=== PATIENT | male | born 1955 | race Caucasian/White ===

== ENCOUNTER 2021-05-20 14:57 | Emergency (ER) | payer BC, MEDICARE, SELFPAY ==
--- NOTE | ~2021-05-20 | CT_ITS ---
EXAMINATION: CT diagnostic chest wo con DATE: 05/20/2021 17:00 INDICATION: lower lobe pneumonia? SOB w/ weakness and cough COVID + x3days TECHNIQUE: Computed tomography (CT) of the chest was performed without intravenous contrast. Addition al 3D reconstructions utilizing coronal maximum intensity projection (MIP) were performed. Automated exposure control and iterative reconstruction technique were employed. The dose-length product was 30 5.14 mGy-cm. COMPARISON: None FINDINGS: Patchy groundglass opacities throughout both lungs consistent with COVID pneumonia. Most prominent in the bilateral lower lobes where they were evident on the prior radiographs with more subtle patchy g roundglass opacities occult on plain radiographs in the right middle, bilateral upper lobes and lingu la. No pleural effusion. Heart size is normal. Mild atherosclerotic coronary artery calcification. No pericardial effusion. Small sliding-type hiatal hernia. Thoracic aorta is normal in caliber. No path ologically enlarged thoracic lymphadenopathy. Small calcified gallstones in the dependent aspect of t he normal-appearing gallbladder. Partially visualized prosthetic disc at C4-C5. Mild anterior wedging at T11. Moderate to severe disc height loss with degenerative endplate changes anteriorly at T11-T12 . IMPRESSION: 1. Bilateral mild patchy groundglass opacities with lower lobe predominance consistent with COVID pne umonia. 2. Cholelithiasis. 3. Small sliding-type hiatal hernia. Reviewed, dictated and finalized at location A. SOMNOGRAPHIC TECHNICIAN IMPRESSION: 1. Bilateral mild patchy groundglass opacities with lower lobe predominance con sistent with COVID pneumonia. 2. Cholelithiasis. 3. Small sliding-type hiatal hernia.
--- NOTE | ~2021-05-20 | XR_ITS ---
EXAMINATION: XR chest 1V portable DATE: 05/20/2021 16:18 INDICATION: COVID positive presenting with mild shortness of breath and weakness TECHNIQUE: frontal view of the chest was obtained. COMPARISON: None FINDINGS: Mild opacities in the bilateral lower lung zones. No pleural effusion or pneumothorax. The cardiomedi astinal silhouette is normal. Prosthetic disc in the lower cervical spine likely at C5-C6. IMPRESSION: 1. Mild opacities at the bilateral lower lung zones which could represent atelectasis and/or pneumoni a. Reviewed, dictated and finalized at location A. LOGY SOCIAL WORKER IMPRESSION: 1. Mild opacities at the bilateral lower lung zones which could represent atele ctasis and/or pneumonia.
[2021-05-20 15:05] VITALS: BP 115/73; PULSE 88; RESP 20; TEMP 37.5; O2SAT 95
[2021-05-20] MEDS: PANTOPRAZOLE SODIUM IV 40 MG VIAL IV PUSH (15:55)
[2021-05-20] MEDS: SODIUM CHLORIDE 0.9% IV 1,000 ML 999 ML IV CONT ×2 (15:55→16:35)
[2021-05-20] MEDS: ONDANSETRON INJ 4 MG/2 ML VIAL IV PUSH ×2 (15:55→16:35)
[2021-05-20 15:57] VITALS: BP 120/76; PULSE 85; RESP 20; O2SAT 98
[2021-05-20 16:03] LABS: Basophils Absolute Auto 0.01 K/mm3 (0.00-0.10); Basophils Percent Auto 0.2 % (0.0-1.0); Hematocrit 42.4 % (40.0-54.0); Hemoglobin 14.7 g/dL (14.0-18.0); Immature Granulocyte Absolute 0.02 K/mm3 (0.00-0.00); Immature Granulocyte Percent A 0.3 % (0.0-0.0); Lymphocytes Absolute Auto 0.93 K/mm3 (1.10-4.50); Lymphocytes Percent Auto 14.2 % (18.0-42.0); Mean Corpuscular HGB Conc 34.7 g/dL (32.0-36.0); Mean Corpuscular Hemoglobin 28.8 pg (27.0-31.0); Mean Platelet Volume 10.7 fl (8.7-11.0); Monocytes Absolute Auto 0.38 K/mm3 (0.10-0.90); Monocytes Percent Auto 5.8 % (2.0-11.0); Neutrophils Absolute Auto 5.2 K/mm3 (1.7-7.2); Neutrophils Percent Auto 79.5 % (50.0-70.0); Platelet Count Result 176 K/mm3 (150-420); Red Blood Count 5.11 M/mm3 (4.70-6.10); Red Cell Distribution Width 11.9 % (11.6-14.4); White Blood Count 6.5 K/mm3 (4.8-10.8)
[2021-05-20 16:19] LABS: Alanine Aminotransferase 46 U/L (16-63); Albumin Level 3.5 g/dL (3.4-5.0); Alkaline Phosphatase 56 U/L (46-116); Anion Gap 13 mmol/L (8-16); Aspartate Amino Transferase 52 U/L (15-37); Bilirubin,Total 0.5 mg/dL (0.00-1.00); Blood Urea Nitrogen 29 mg/dL (7-18); Calcium 8.9 mg/dL (8.5-10.1); Carbon Dioxide 24 mmol/L (21-32); Chloride 92 mmol/L (98-108); Estimated CRCL calculation 49 ml/min; Estimated Glomerular Filt Rate 50; Glucose 285 mg/dL (70-99); Lipase 215 U/L (73-393); Osmolality Calculated 283 mOsm/kg (285-295); Potassium 4.8 mmol/L (3.5-5.1); Sodium 129 mmol/L (136-145); Total Protein 7.6 g/dL (6.4-8.2)
[2021-05-20 17:25] LABS: Add Urine Microscopic? YES; Appearance Urine Clear (Clear); Bilirubin Urine Negative (Negative); Blood Urine 2+ (Negative); Color Urine Yellow (Yellow); Glucose Urine UA 3+ (Negative); Ketones Urine 1+ (Negative); Leukocyte Esterase Ur Negative LEU/UL (Negative); Nitrate Urine Negative (Negative); Protein Urine 2+ (Negative); Specific Grav Ur >= 1.030 (1.010-1.020); Urobilinogen Urine 0.2 mg/dL (0.2-1.0)
--- NOTE | 2021-05-20 17:32 | ED.NAVMDI ---
HPI - Nausea/Vomiting/Diarrhea General Chief complaint: Nausea/Vomiting/Diarrhea Stated complaint: COVID+, blacked out,vomiting Time Seen by Provider: 05/20/21 14:59 Source: patient and RN notes reviewed Mode of arrival: ambulatory Limitations: no limitations History of Present Illness MD elicited complaint: nausea and vomiting Onset (ago): day(s) (1) Description of vomiting: watery Description of diarrhea: watery Associated nausea: Yes Associated abdominal pain: Yes Location of pain: diffuse Pain consistency: constant Severity: mild Pain scale (0-10): 3 Quality: cramping, aching and dull Exacerbating factors: none Relieving factors: none Associated symptoms: cough and nausea/vomiting Related Data Home Medications Medication Instructions Recorded Confirmed blood-glucose meter #1 each 04/25/19 05/22/21 Allergies Allergy/AdvReac Type Severity Reaction Status Date / Time nateglinide Allergy Severe Swelling Verified 05/22/21 13:48 of Lip/Tongue/Throat latex Allergy Unknown Verified 05/22/21 13:48 saxagliptin Allergy Unknown Verified 05/22/21 13:48 bag machine adjuster Allergy Severe skin Uncoded 05/22/21 13:48 breakdown cologne Allergy Severe hives Uncoded 05/22/21 13:48 wool clothing Allergy Severe hives Uncoded 05/22/21 13:48 Review of Systems Review of Systems: All systems reviewed & are unremarkable except as noted in HPI and below PMFSH Past Medical History Medical History Acquired hyperlipoproteinemia ADHD Anxiety Arthritis Asthma Back pain Bicipital tendinitis of left shoulder Body mass index (bmi) 31.0-31.9, adult Controlled type 2 diabetes mellitus with hyperglycemia Depression Dietary counseling and surveillance Headache, migraine Hearing loss Obesity Pure hypercholesterolemia, unspecified SOB (shortness of breath) Type 2 diabetes mellitus with hyperglycemia Vision loss Surgical History Surgical History H/O knee surgery H/O Spinal surgery History of ear surgery Family History Family History Other Carcinoma of colon Depression Diabetes mellitus Family history of arthritis Family history of chronic obstructive pulmonary disease Family history of congestive heart failure Family history of heart disease in male family member before age 55 Family history of lung disease Family history of mental disorder Family history of obesity Family history of thyroid disease Social History Social History Smoking status: Never smoker Alcohol intake: current Exam Const: General: no acute distress and alert Nutritional Appearance: well nourished Orientation/consciousness: patient oriented x3 HENMT: Head: normal to inspection Ears: external ears normal and TM's normal bilaterally General nose exam: Normal external nose present and Normal nares present Face and sinus: normal facial exam Mouth: Yes lip normal and Yes moist mucous membranes Teeth and gingiva: dentition normal Eyes: Cornea: corneas normal Pupils: Equal, round and reactive pupils present EOM: EOMs intact bilaterally Neck: Neck: normal visual inspection and no lymphadenopathy Chest: Chest palpation & inspection: normal inspection of the chest Resp: Effort & Inspection: normal respiratory effort Auscultation: clear to auscultation bilaterally Cardio: Rate: regular rate Rhythm: regular rhythm GI: GI Palp: Yes Soft to palpation and No Tenderness to palpation present (GI) Auscultation: normal bowel sounds : General: Yes bladder normal to palpation Male General Exam: Yes normal external exam Testes: Testes normal Back/Spine/Pelvis: Back: no CVA tenderness Skin: General skin exam: normal color Neuro: General: patient oriented x3, moves all extremities, no focal motor deficits an
[2021-05-20 17:34] LABS: RBC Urine 0-2 /hpf (0-2)
[2021-05-20 17:35] LABS: Bacteria Urine Trace /hpf; Squamous Epithelial Cell Urine Rare /hpf (Few); WBC Urine 0-3 /hpf (0-3)
[2021-05-20 17:43] LABS: Lactic Acid Reflex 1.3 mmol/L (0.4-2.0)
[2021-05-20 17:49] VITALS: BP 106/75; PULSE 79; RESP 20; TEMP 37.4; O2SAT 96
== END 2021-05-20 18:00 | disposition home or self-care (01) ==
PROVIDERS: Emergency Provider Emergency Medicine
DX: U07.1 COVID-19 (principal); J12.82 Pneumonia due to coronavirus disease 2019; K29.70 Gastritis, unspecified, without bleeding
CPT/HCPCS: 36415; 71045; 71250; 80053; 81001; 83605; 83690; 85025; 96361; 96365; 96375; 96376; 99283; 99284; C9113; J0696; J2405; J7030

== ENCOUNTER 2021-05-22 07:56 | Outpatient (RCR) | payer BC, MEDICARE, SELFPAY ==
[2021-05-22 13:47] VITALS: BP 113/62; PULSE 77; TEMP 35.9; O2SAT 95
[2021-05-22] MEDS: ACETAMINOPHEN 325 MG TABLET 650 MG PO (13:49)
[2021-05-22] MEDS: FAMOTIDINE 20 MG TABLET PO (13:50)
[2021-05-22] MEDS: diphenhydrAMINE HCl CAP 25 MG CAPSULE PO (13:50)
[2021-05-22 15:28] VITALS: BP 104/53
== END 2021-05-22 17:02 ==
LOC: AMCINF 07:56
PROVIDERS: PCP Nurse Practitioner Adult Health; Visit Provider Internal Medicine Hematology & Oncology
DX: U07.1 COVID-19 (principal); E11.9 Type 2 diabetes mellitus without complications
CPT/HCPCS: A9270; M0245; Q0245

== ENCOUNTER 2021-09-07 07:56 | Emergency (ER) | payer BC, MEDICARE, SELFPAY ==
--- NOTE | ~2021-09-07 | CT_ITS ---
EXAMINATION: CT lumbar spine wo con DATE: 09/07/2021 09:07 INDICATION: Low back pain. TECHNIQUE: Computed tomography (CT) of the lumbar spine was performed without intravenous contrast. A utomated exposure control and iterative reconstruction technique were employed. The dose-length produ ct was 972.66 mGy-cm. COMPARISON: None FINDINGS: There are gallstones in the gallbladder, which is normal in size. There is 3 mm anterolisth esis of L4 on L5. Vertebral body heights are normal. There is severely decreased disc height at T11-T 12 with endplate remodeling. The following disc levels are specifically discussed: L1-L2: The disc does not extend beyond the endplate margin. There is no facet joint osteoarthritis. T here is no neural foraminal stenosis. There is no central canal stenosis. L2-L3: The disc does not extend beyond the endplate margin. There is mild bilateral facet joint osteo arthritis. There is no neural foraminal stenosis. There is no central canal stenosis. L3-L4: The disc is mildly bulging. There is no facet joint osteoarthritis. There is mild bilateral ne ural foraminal stenosis. There is mild central canal stenosis. L4-L5: The disc is bulging. There is severe bilateral facet joint osteoarthritis. There is mild bilat eral neural foraminal stenosis. There is mild central canal stenosis. L5-S1: The disc is bulging. There is severe bilateral facet joint osteoarthritis. There is mild bilat eral neural foraminal stenosis. There is mild central canal stenosis. IMPRESSION: 1. Mild lumbar spondylosis. Reviewed, dictated and finalized at location A. IMPRESSION: 1. Mild lumbar spondylosis.
--- NOTE | ~2021-09-07 | CT_ITS ---
EXAMINATION: CT hip LT wo con DATE: 09/07/2021 09:06 INDICATION: Left hip pain. TECHNIQUE: Computed tomography (CT) of the left hip was performed without intravenous contrast. Autom ated exposure control and iterative reconstruction technique were employed. The dose-length product w as 472.51 mGy-cm. COMPARISON: Left hip radiograph 10/29/2016 FINDINGS: Bone alignment is normal. No fracture. There is moderate left hip osteoarthritis. There is a left hip effusion. IMPRESSION: 1. Moderate left hip osteoarthritis. 2. Left hip joint effusion. Reviewed, dictated and finalized at location A.
[2021-09-07 08:05] VITALS: BP 156/82; PULSE 81; RESP 16; TEMP 36.2; O2SAT 100
--- NOTE | 2021-09-07 08:29 | ED.GENADULT ---
HPI - General Adult General Chief complaint: Back Pain/Injury Stated complaint: ambulance Source: patient and EMS Mode of arrival: EMS Limitations: no limitations History of Present Illness HPI narrative: Austin is a 66M with a PMH of HLD, gastritis, anxiety, asthma, OA and severe DJD that was brought to the ED via EMS for back pain. He has chronic back pain that has been getting worse over the last day. The pain was so bad he had trouble moving his left leg. There were no trauma or falls. There has been no loss of bowel or bladder control or trouble emptying it. He has been able to move all extremities it has just been very painful. Related Data Home Medications Medication Instructions Recorded Confirmed blood-glucose meter #1 each 04/25/19 07/07/21 Allergies Allergy/AdvReac Type Severity Reaction Status Date / Time nateglinide Allergy Severe Swelling Verified 09/07/21 08:29 of Lip/Tongue/Throat latex Allergy Intermediate rash Verified 09/07/21 08:29 saxagliptin Allergy Unknown Rash Verified 09/07/21 08:29 museum exhibit technician Allergy Severe skin Uncoded 09/07/21 08:29 breakdown cologne Allergy Severe hives Uncoded 09/07/21 08:29 wool clothing Allergy Severe hives Uncoded 09/07/21 08:29 Review of Systems Constitutional: Constitutional: Reports no additional constitutional complaints Eyes: Eyes: Reports no additional eye complaints ENT: Reports system reviewed and no additional complaints, except as documented Cardiovascular: Cardiovascular: Reports no additional cardiovascular complaints Respiratory: Respiratory: Reports no additional respiratory complaints Gastrointestinal: Gastrointestinal: Reports no additional gastrointestinal complaints Genitourinary: Genitourinary: Reports no additional male genitourinary complaints Musculoskeletal: Musculoskeletal: Reports as per HPI Integumentary/Breasts: Skin/Breast: Reports system reviewed and no additional complaints, except as docu Neurologic: Reports system reviewed and no additional complaints, except as documented Psychiatric: Psychiatric: Reports no additional psychiatric complaints Endocrine: Endocrine: Reports no additional endocrine complaints Hematologic/Lymphatic: Hematologic/Lymphatic: Reports no additional hematologic/lymphatic complaints Allergic/Immunologic: Allergic/Immunologic: Reports no additional allergic/immunologic complaints [facility] Past Medical History Medical History Acquired hyperlipoproteinemia ADHD Anxiety Arthritis Asthma Back pain Bicipital tendinitis of left shoulder Body mass index (bmi) 31.0-31.9, adult Controlled type 2 diabetes mellitus with hyperglycemia Depression Dietary counseling and surveillance Headache, migraine Hearing loss Obesity Pure hypercholesterolemia, unspecified SOB (shortness of breath) Type 2 diabetes mellitus with hyperglycemia Vision loss Surgical History Surgical History H/O knee surgery H/O Spinal surgery History of ear surgery Family History Family History Other Carcinoma of colon Depression Diabetes mellitus Family history of arthritis Family history of chronic obstructive pulmonary disease Family history of congestive heart failure Family history of heart disease in male family member before age 55 Family history of lung disease Family history of mental disorder Family history of obesity Family history of thyroid disease Social History Social History Smoking status: Never smoker Alcohol intake: current Exam Const: General: no acute distress and alert Orientation/consciousness: patient oriented x3 HENMT: Head: normal to inspection Eyes: Conjunctivae: conjunctivae normal Pupils: Equal, round and reactive pupils present Neck: Neck: no
[2021-09-07 08:32] LABS: Basophils Absolute Auto 0.03 K/mm3 (0.00-0.10); Basophils Percent Auto 0.4 % (0.0-1.0); Eosinophils Absolute Auto 0.02 K/mm3 (0.02-0.50); Eosinophils Percent Auto 0.2 % (1.0-6.0); Hematocrit 37.1 % (40.0-54.0); Hemoglobin 12.8 g/dL (14.0-18.0); Immature Granulocyte Absolute 0.02 K/mm3 (0.00-0.00); Immature Granulocyte Percent A 0.2 % (0.0-0.0); Lymphocytes Absolute Auto 1.92 K/mm3 (1.10-4.50); Lymphocytes Percent Auto 23.2 % (18.0-42.0); Mean Corpuscular HGB Conc 34.5 g/dL (32.0-36.0); Mean Corpuscular Hemoglobin 28.4 pg (27.0-31.0); Mean Corpuscular Volume 82.3 fL (78.0-102.0); Mean Platelet Volume 10.1 fl (8.7-11.0); Monocytes Absolute Auto 0.64 K/mm3 (0.10-0.90); Monocytes Percent Auto 7.7 % (2.0-11.0); Neutrophils Absolute Auto 5.6 K/mm3 (1.7-7.2); Neutrophils Percent Auto 68.3 % (50.0-70.0); Platelet Count Result 286 K/mm3 (150-420); Red Blood Count 4.51 M/mm3 (4.70-6.10); Red Cell Distribution Width 12.3 % (11.6-14.4); White Blood Count 8.3 K/mm3 (4.8-10.8)
[2021-09-07] MEDS: ACETAMINOPHEN 500 MG TABLET 1000 MG PO (08:37)
[2021-09-07] MEDS: CYCLOBENZAPRINE HCL 10 MG TABLET PO (08:37)
[2021-09-07] MEDS: MORPHINE SULFATE (*CRX) 4 MG/ML INJ IV PUSH (08:38)
[2021-09-07 08:44] LABS: Alanine Aminotransferase 20 U/L (16-63); Albumin Level 3.5 g/dL (3.4-5.0); Alkaline Phosphatase 69 U/L (46-116); Anion Gap 13 mmol/L (8-16); Aspartate Amino Transferase 12 U/L (15-37); Bilirubin,Total 0.6 mg/dL (0.00-1.00); Blood Urea Nitrogen 14 mg/dL (7-18); Calcium 9.2 mg/dL (8.5-10.1); Carbon Dioxide 23 mmol/L (21-32); Chloride 97 mmol/L (98-108); Estimated Glomerular Filt Rate > 60; Glucose 212 mg/dL (70-99); Osmolality Calculated 282 mOsm/kg (285-295); Potassium 3.7 mmol/L (3.5-5.1); Sodium 133 mmol/L (136-145); Total Protein 7.6 g/dL (6.4-8.2)
[2021-09-07 09:19] LABS: Add Urine Microscopic? YES; Appearance Urine Clear (Clear); Bilirubin Urine Negative (Negative); Blood Urine Negative (Negative); Color Urine Light Yellow (Yellow); Glucose Urine UA 2+ (Negative); Ketones Urine 2+ (Negative); Leukocyte Esterase Ur Negative (Negative); Nitrate Urine Negative (Negative); Protein Urine Negative (Negative); Specific Grav Ur <= 1.005 (1.010-1.020); Urobilinogen Urine 0.2 mg/dL (0.2-1.0); pH Urine 6.5 (5.0-8.0)
[2021-09-07 09:24] LABS: Bacteria Urine None seen /hpf; RBC Urine None seen /hpf (0-2); Squamous Epithelial Cell Urine Rare /hpf (Few); WBC Urine None seen /hpf (0-3)
--- NOTE | 2021-09-07 09:43 | PC.NURSE ---
came out of room and patient decided he wanted to be admitted instead of discharged.
[2021-09-07 10:43] VITALS: BP 117/62; PULSE 85; RESP 16; TEMP 36.9; O2SAT 100
--- NOTE | 2021-09-07 10:46 | PC.NURSE ---
patient's went home and got patient crutches to keep weight off leg. patient is able to ambulate with crutches with pain relief.
== END 2021-09-07 11:00 | disposition home or self-care (01) ==
PROVIDERS: Emergency Provider Family Medicine; PCP Nurse Practitioner Adult Health
DX: M25.452 Effusion, left hip (principal)
CPT/HCPCS: 36415; 72131; 73700; 80053; 81001; 85025; 96374; 99284; A9270; J2270

== ENCOUNTER → 2022-02-23 16:35 | Outpatient (CLI) | payer BC, MEDICARE, SELFPAY ==
--- NOTE | ~2022-02-23 | MR_ITS ---
EXAMINATION: MR elbow LT wo con DATE: 02/23/2022 17:15 INDICATION: Anterior left elbow pain following injury one month prior. TECHNIQUE: Magnetic resonance imaging (MRI) of the left elbow was performed without intravenous contr ast. Sequences included coronal and axial sagittal PD-weighted FS FSE and coronal, axial, and sagitta l PD-weighted FSE. Patient terminated procedure prior to obtaining the planned sagittal PD-weighted F S FSE or repetition of the coronal PD-weighted FS FSE sequence which is significantly limited by shani on. COMPARISON: None FINDINGS: Osseous/other: Normal alignment. Normal marrow signal with fracture, osteochondral lesion or abnormal marrow replac ing process. Mild osteoarthritis at the right elbow with nonuniform partial-thickness cartilage loss most prominent along the radial head. Nondisplaced small deep chondral flap tear at the lateral side of the trochlear cartilage beginning at the junction of the capitellar and trochlear articular surfac es and linear fluid signal near the bone chondral interface extending 4 mm medially. There is minimal subarticular edema-like signal change underlying the flap tear. Tendons: Moderate tendinopathy and full versus near full-thickness tear near the radial tuberosity footplate o f the biceps brachii tendon. There is <1 cm separation of the ragged proximal and distal tear margins . Minimal tendinopathy of the distal triceps and brachialis tendons without tear. Common flexor tend on wad is normal. Mild tendinopathy without tear at the proximal common extensor tendon wad. Ligaments: The medial and lateral collateral ligament complexes are normal. Cubital tunnel: Cubital tunnel is unremarkable with normal signal and caliber of the ulnar nerve. Fluid: Physiologic amount of fluid the elbow joint. IMPRESSION: 1. Moderate tendinopathy and focal versus near full-thickness tear of the distal biceps brachii tendo n. 2. Mild tendinopathy without tear of the common extensor tendon wad. 3. Mild osteoarthritis at the left elbow with small deep flap tear of the trochlear cartilage beginni ng near the junction with the capitellar articular surface. Reviewed, dictated and finalized at location A. IMPRESSION: 1. Moderate tendinopathy and focal versus near full-thickness tear of the dista l biceps brachii tendon. 2. Mild tendinopathy without tear of the common extensor tendon wad. 3. Mild osteoarthritis at the left elbow with small deep flap tear of the troch lear cartilage beginning near the junction with the capitellar articular surfac e.
== END ==
PROVIDERS: PCP Nurse Practitioner Adult Health; Visit Provider Nurse Practitioner Adult Health
DX: M62.13 Other rupture of muscle (nontraumatic), forearm (principal); M19.022 Primary osteoarthritis, left elbow
CPT/HCPCS: 73221

== ENCOUNTER 2023-11-04 14:51 | Outpatient (CLI) | payer BC, MEDICARE, SELFPAY ==
[2023-11-04 17:38] LABS: Anion Gap 13 mmol/L (4-12); Blood Urea Nitrogen 25 mg/dL (9-20); Calcium 9.9 mg/dL (8.4-10.2); Carbon Dioxide 23 mmol/L (22-30); Chloride 100 mmol/L (98-107); Estimated Glomerular Filt Rate > 60; Glucose 249 mg/dL (65-110); HDL Direct 52 mg/dL; Potassium 4.6 mmol/L (3.4-5.0); Sodium 136 mmol/L (137-145)
[2023-11-04 17:49] LABS: LDL Cholesterol Direct 186 mg/dL
[2023-11-04 18:09] LABS: Thyroid Stimulating Hormone 0.929 uIU/mL (0.465-4.680)
== END 2023-11-04 14:52 | disposition home or self-care (01) ==
LOC: ANHWCLAB 14:55
PROVIDERS: PCP Nurse Practitioner Adult Health; Visit Provider Internal Medicine Endocrinology, Diabetes & Metabolism
DX: E11.65 Type 2 diabetes mellitus with hyperglycemia (principal); E78.5 Hyperlipidemia, unspecified
CPT/HCPCS: 36415; 80048; 82607; 83718; 83721; 84443